=== PATIENT | female | born 1970 | race Caucasian/White ===

== ENCOUNTER → 2018-02-20 | Outpatient (CLI) | payer OTHER ==
--- NOTE | 2018-02-20 09:35 | CT ---
EXAMINATION TYPE: CT facial bones wo con DATE OF EXAM: 02/20/2018 COMPARISON: None HISTORY: 47-year-old female left sided chronic sinusitis CT DLP: 635.1 mGycm Automated exposure control for dose reduction was used. TECHNIQUE: Noncontrast axial views of the paranasal sinuses were obtained. Coronal reconstructions pe rformed. FINDINGS: PARANASAL SINUSES: Trace mucosal thickening medial wall and floor of the left maxillary sinus. Additional trace mucosal thickening near the right maxillary infundibulum of the right maxillary sinus. The frontal, ethmoid, and sphenoid sinuses are clear and well pneumatized. There is no air-fluid level. Reactive higinio- osteogenesis is not seen. There is no destruction of the osseous kunz of the paranasal sinuses. THE NASAL CAVITY: The osteomeatal complexes are patent. Slight leftward nasal septal bowing. The imaged brain and orbits are normal in appearance. Visualized middle ear cavities are well pneumatized. Most of the mastoid air cells are excluded from view. Reformatted images confirm above findings. IMPRESSION: Trace mucosal thickening within the maxillary sinuses. Otherwise, no significant paranasal sinus dis ease. There is also slight leftward bowing of the nasal septum.
== END | disposition home or self-care (01) ==
LOC: RADCTMAIN 07:24
PROVIDERS: ATTEND Otolaryngology
DX: J34.89 Other specified disorders of nose and nasal sinuses (principal); J34.2 Deviated nasal septum
CPT/HCPCS: 70486